=== PATIENT | male | born 1985 | race Hispanic/Latino ===

== ENCOUNTER 2023-06-30 22:33 | Observation (INO) | payer SELFPAY ==
[2023-06-30 23:04] VITALS: BMI 40.7
[2023-06-30] MEDS ORDERED: traMADol HCl 50 MG TAB PO PRN (23:10)
[2023-06-30] MEDS ORDERED: Morphine 2 MG/ML VIAL SLOW IVP PRN (23:11)
[2023-06-30] MEDS: Acetaminophen 325 MG TAB PO SCH (23:38)
[2023-07-01] MEDS: traMADol HCl 50 MG TAB PO SCH ×4 (00:24→17:37)
[2023-07-01] MEDS: Piperacillin/Tazobactam 3.375 GM in Sodium Chloride 0.9% 100 ML IVPB SCH ×3 (00:26→17:37)
[2023-07-01] MEDS: Acetaminophen 325 MG TAB PO SCH ×3 (05:04→17:37)
[2023-07-01] MEDS ORDERED: EPINEPHrine 1 MG/ML VIAL ONE (10:02)
[2023-07-01] MEDS ORDERED: Bupivacaine PF 0.5% 30 ML VIAL ONE (10:02)
[2023-07-01] MEDS ORDERED: Lidocaine 2% 6 ML (Jelly) SYR ONE ×2 (10:03)
[2023-07-01] MEDS ORDERED: fentaNYL 50 mcg/mL 1 mL Vial ONE (10:19)
[2023-07-01] MEDS ORDERED: Lidocaine 1% PF 5 ML VIAL ONE (10:19)
[2023-07-01] MEDS ORDERED: Rocuronium Bromide 10 MG/ML (10ML VIAL) ONE (10:19)
[2023-07-01] MEDS ORDERED: Succinylcholine 200 MG/10 ml SYRINGE FS ONE (10:19)
[2023-07-01] MEDS ORDERED: PROPOFOL 20 ML ONE (10:19)
[2023-07-01] MEDS ORDERED: SUGAMMADEX SODIUM 200 MG/2 ML VIAL ONE (10:39)
[2023-07-01 15:45] VITALS: BP 136/63
[2023-07-01] MEDS ORDERED: Ibuprofen 400 MG TAB PO PRN (15:57)
[2023-07-01 17:04] VITALS: TEMP 97.7
[2023-07-01] MEDS ORDERED: metroNIDAZOLE 500 MG TAB PO SCH (21:00)
== END 2023-07-01 17:39 | disposition home or self-care (01) ==
LOC: CSHTELE 22:33 → INTOOBSV 22:33
PROVIDERS: ADMIT Surgery; ATTEND Surgery
PROC: 0D9P0ZZ Drainage of Rectum, Open Approach (ICD-10-PCS; principal; 2023-07-01)
DX: K61.1 Rectal abscess (principal); Z88.2 Allergy status to sulfonamides; Z79.899 Other long term (current) drug therapy
CPT/HCPCS: 87070; 87077; 87205; J0171; J2272; J2543; J2704; J3010; J3490; S0020